=== PATIENT | female | born 1970 | race Caucasian/White ===

== ENCOUNTER 2024-02-13 09:26 | Emergency (ER) | payer MEDICARE ==
[~2024-02-13] VITALS: Ht 152.4 cm; Wt 86.0 kg
[2024-02-13 09:42] VITALS: BP 186/103
[2024-02-13 10:01] VITALS: BP 167/145
[2024-02-13 10:31] VITALS: BP 136/81
[2024-02-13 10:48] LABS: HEMATOCRIT 38.2 % (37.0-47.0); HEMOGLOBIN 12.7 g/dl (12.0-16.0); IMMATURE GRANULOCYTES 0.3 % (0.0-5.0); LYMPH% 24.4 % (15-41); MEAN CORPUSCULAR HGB 31.6 pG CALC (26.0-32.0); MEAN CORPUSCULAR HGB CONC 33.2 g/dL CAL (32.0-36.0); MONO% 8.2 % (2-13); NEUT# 3.9 thou/uL (2.00-7.15); NEUT% 58.1 % (42-76); RED BLOOD COUNT 4.02 mill/uL (4.20-5.60); RED CELL DISTRI WIDTH 13.1 % (11.5-15.5)
[2024-02-13 11:00] VITALS: BP 143/99
[2024-02-13 11:06] LABS: ALBUMIN 4.1 g/dL (3.2-5.0); BILIRUBIN, TOTAL 0.3 mg/dL (0.02-1.3); POTASSIUM 4.1 mmol/l (3.5-5.1); TOTAL PROTEIN 6.9 g/dL (6.3-8.2)
[2024-02-13] MEDS ORDERED: KETOROLAC TROMETHAMINE 30 MG/ML SDV IM ONE (11:15)
[2024-02-13] MEDS ORDERED: CEPHALEXIN500 M1 PO (12:51)
[2024-02-13] MEDS ORDERED: NAPROXEN500 MG PO (12:55)
[2024-02-13 12:58] VITALS: BP 143/99
== END 2024-02-13 13:04 | disposition home or self-care (01) ==
LOC: ED 09:26
PROVIDERS: Family Medicine
DX: L03.116 Cellulitis of left lower limb (principal); I10 Essential (primary) hypertension; K21.9 Gastro-esophageal reflux disease without esophagitis; F41.9 Anxiety disorder, unspecified; M79.89 Other specified soft tissue disorders